=== PATIENT | female | born 1945 | race Caucasian/White ===

== ENCOUNTER → 2017-12-16 | Outpatient (CLI) | payer MEDICARE, MEDICAID ==
[~2017-12-16] MED LIST: ALB18R INH; ASPI-1471 PO; ATOR20TA65 PO; FENO134C5 PO; FLUO-177 PO; FLUT16SP19 NS; GABA-549 PO; LISI-362 PO; MELO-207 PO; METF-450 PO; OMEG1CAP60 PO; OMEP-125 PO; PRIM50TA PO; TRAM-420 PO
[2017-12-16 16:07] LABS: PLATELET COUNT, AUTOMATED 234 K/uL (150-450)
--- NOTE | 2017-12-16 16:21 | EKG ---
FACILITY: [facility] [place] PATIENT NAME: KEYUR VAZQUEZ : [id number] MR: [id number] V: [id number] EXAM DATE: ORDERING PHYSICIAN: RAFAL DAS TECHNOLOGIST: JIGNESH Test Reason : SOB Blood Pressure : / mmHG Vent. Rate : 061 BPM Atrial Rate : 061 BPM P-R Int : 144 ms QRS Dur : 090 ms QT Int : 394 ms P-R-T Axes : 051 053 090 degrees QTc Int : 396 ms Sinus rhythm with premature supraventricular complexes T wave abnormality, consider anterolateral ischemia Abnormal ECG No previous ECGs available Confirmed by RAFAL DAS ([id number]) on 12/17/2017 2:34:38 PM Referred By: KATI Confirmed By:RAFAL DAS
[2017-12-16 16:43] LABS: LDL CHOLESTEROL 105 mg/dl
--- NOTE | 2017-12-16 17:05 | RADIOLOGY IMAGING REPORT ---
[place] [facility] [place] NAME: Uma Ron : 1945 MR: [id number] V: [id number] EXAM DATE: ORDERING PHYSICIAN: RAFAL DAS TECHNOLOGIST: Location: [facility] Patient: Uma Ron : 1945 Visit/Account:[id number] Date of Sevice: 12/16/2017 CHEST PA AND LAT Indication: copd Comparison: None. Findings: Lungs: There is a calcified granulomata left midlung. Remaining lung parenchyma is clear. There is hyperinflation and flattening of the diaphragms. Mediastinum/pulmonary vasculature: Heart size and pulmonary vasculature are normal. Bones/soft tissues: There is generalized osteopenia. IMPRESSION: 1. Calcified granuloma left midlung. 2. Otherwise clear lungs. 3. Findings consistent with COPD. Report Dictated By: Dell Hilario at 12/16/2017 4:57 PM Report E-Signed By: Dell Hilario at 12/16/2017 5:00 PM WSN:[id number]
== END ==
LOC: LAB 15:29
PROVIDERS: ATTEND Internal Medicine
DX: J84.10 Pulmonary fibrosis, unspecified (principal); J44.9 Chronic obstructive pulmonary disease, unspecified
CPT/HCPCS: 36415; 71046; 81001; 82040; 82043; 82247; 82310; 82374; 82435; 82465; 82565; 82947; 83036; 83718; 84075; 84132; 84155; 84295; 84443; 84450; 84460; 84478; 84520; 84550; 85025

== ENCOUNTER → 2017-12-18 | Outpatient (CLI) | payer MEDICARE, MEDICAID | LOC: RESP 01:36 | PROVIDERS: ATTEND Internal Medicine | DX: J44.9 Chronic obstructive pulmonary disease, unspecified (principal) | CPT/HCPCS: 94060; 94726; 94729 ==

== ENCOUNTER → 2017-12-23 | Outpatient (CLI) | payer MEDICARE, MEDICAID | LOC: US 00:50 | PROVIDERS: ATTEND Internal Medicine | DX: I51.7 Cardiomegaly (principal); I35.0 Nonrheumatic aortic (valve) stenosis | CPT/HCPCS: 93306 ==

== ENCOUNTER → 2018-04-13 | Outpatient (CLI) | payer MEDICARE, MEDICAID ==
[~2018-04-13] MED LIST changes: +ATOR40TA69 PO; +FLUT1AER INH; +LOSA100T75 PO; +PNEU0.5D3 IM; +ROSU40TA18 PO
[2018-04-13 16:20] LABS: LDL CHOLESTEROL 110 mg/dl
== END ==
LOC: LAB 15:30
PROVIDERS: ATTEND Internal Medicine
DX: G25.0 Essential tremor (principal); E11.9 Type 2 diabetes mellitus without complications; I10 Essential (primary) hypertension
CPT/HCPCS: 36415; 82040; 82247; 82310; 82374; 82435; 82465; 82565; 82947; 83036; 83718; 84075; 84132; 84155; 84295; 84450; 84460; 84478; 84520